=== PATIENT | male | born 1985 | race Caucasian/White ===

== ENCOUNTER 2020-11-30 08:35 | Day surgery (SDC) | payer BC, MEDICAID ==
[~2020-11-30 08:35] MED LIST: Sodium Chloride 0.9% 10 ML Syringe FLUSH PRN
[2020-11-30] MEDS ORDERED: Glycopyrrolate 0.2 MG/ML SDV IVPUSH ONE (08:36)
[2020-11-30] MEDS: Lactated Ringers 1,000 ML IV SCH (09:15)
[2020-11-30] MEDS ORDERED: Midazolam 1 MG/ML 2 ML SDV ONE (09:51)
[2020-11-30] MEDS ORDERED: Propofol 200 MG/20 ML SDV ONE (09:52)
[2020-11-30] MEDS ORDERED: Lidocaine 2% 5 ML SDV ONE (09:56)
[2020-11-30] MEDS ORDERED: Lactated Ringers 1,000 ML ONE (10:19)
--- NOTE | 2020-11-30 10:35 | PCM.OPNOTE ---
- General Post-Op/Procedure Note Date of Surgery/Procedure: 11/30/20 Operative Procedure(s): Upper and lower GI endoscopy. Biopsies taken from the duodenum. Pre Op Diagnosis: Malabsorption syndrome, chronic diarrhea, rule out malabsorption syndrome, inflammatory bowel disease. Post-Op Diagnosis: Normal colonoscopy. Normal upper GI endoscopy. Biopsies taken from the duodenum. Anesthesia Technique: MAC Primary Surgeon: Reza Dial Complications: None Condition: Good Free Text/Narrative:: INFORMED CONSENT: Patient is here today for elective upper GI endoscopy. All aspects of this procedure have been discussed with the patient. All possible complications also, including possibility of perforation, infection, pain, bleeding, numbness of the throat, swallowing difficulty and unknown complications. In the event of perforation the patient may need surgical exploration to repair the defect. The patient understands fully well. Patient did not have any further questions for me at the end of my interview. The patient wishes for me to proceed. INSTRUMENT USED: Video gastroscope ANESTHESIA: [MAC] ASA CLASSIFICATION: [1] PROCEDURE PERFORMED: [Upper gastrointestinal endoscopy and biopsies] PHARYNX: Normal. ESOPHAGUS: Normal. Proximal: Normal. Middle: Normal. Lower: Normal. GE Junction: Normal. STOMACH: Normal. Cardia: Normal. Fundus: Normal. Lesser Curvature: Normal. Greater Curvature: Normal. Antrum: Normal. Pylorus: Normal. DUODENUM: Normal. First Part: Normal. Second Part: Normal. Third Part: Normal, multiple biopsies were taken to rule out possibility of malabsorption syndromes and infective processes. RETROFLEXION: Normal. BIOPSY: None. TOLERANCE: Excellent. COMPLICATIONS: None. Normal upper GI endoscopy. INFORMED CONSENT: Patient is here today for elective colonoscopy. All aspects of this procedure have been discussed with the patient. All possible complications also, including possibility of perforation, infection, pain, bleeding and unknown complications. In the event of perforation patient may need to have abdominal exploration, colon resection, colostomy and even was discussed. Anesthetic complications were handled by anesthesia department. The patient understands fully well. Patient did not have any further questions for me at the end of my interview. The patient wishes for me to proceed. PREOPERATIVE DIAGNOSIS/INDICATIONS: [Chronic diarrhea, weight loss.] POSTOPERATIVE DIAGNOSIS: [Normal colonoscopy. No evidence of inflammatory bowel disease.] INSTRUMENT USED: Ziptask videocolonoscope. ASA CLASSIFICATION: [1] ANESTHESIA: Continuous EKG, oximetry and intermittent blood pressure and respiratory monitoring were performed throughout the procedure. IV Versed and Fentanyl were administered. PROCEDURE PERFORMED: Colonoscopy POSITIONS OF PATIENT: Left lateral. RECTUM: Normal no significant hemorrhoids were noticed. SIGMOID COLON: Normal. DESCENDING COLON: Normal. SPLENIC FLEXURE: Normal. TRANSVERSE COLON: Normal. HEPATIC FLEXURE: Normal. ASCENDING COLON: Normal. CECUM: Normal. ILEOCECAL VALVE: Normal. BIOPSY: None. TOLERANCE: Excellent. COMPLICATIONS: None.
[2020-11-30 14:03] VITALS: BP 99/50; PULSE 68
== END 2020-11-30 11:50 | disposition home or self-care (01) ==
LOC: KA.SDS 08:35
PROVIDERS: ATTEND Family Medicine
DX: K52.9 Noninfective gastroenteritis and colitis, unspecified (principal); K62.5 Hemorrhage of anus and rectum; R63.4 Abnormal weight loss; Z01.812 Encounter for preprocedural laboratory examination; Z20.822 Contact with and (suspected) exposure to COVID-19; F41.9 Anxiety disorder, unspecified; E03.9 Hypothyroidism, unspecified; Z79.890 Hormone replacement therapy; Z79.899 Other long term (current) drug therapy
CPT/HCPCS: 00813; J2250; J2704; J3490; J7120; U0002